=== PATIENT | male | born 1990 | race African-American/Black ===

== ENCOUNTER 2018-10-19 15:28 | Inpatient (IN) | payer MEDICAID, MEDICARE, OTHER ==
[~2018-10-19] VITALS: Ht 180.3 cm; Wt 98.0 kg
--- NOTE | 2018-10-19 15:46 | NUR ---
Note stephanie in EDM - 10/19/18 at 1737 by YANDEL PATIENT ARRIVES HERE TO FROM [facility]. [facility] WITH COMPLAINTS OF HEARING VOICES THAT WERE TELLIGN HIM TO HURT HIMSELF. HE HAS A HX SCHITZOPHRENIA, BIPOLAR, DEPRESSION. HE ARRIVES HERE FROM [place]. HE WAS IN [place] IN [place] FOR WRECKLESS DRIVING. HE IS CALM AND COOPERATIVE. IN BED, ON MONITOR.
--- NOTE | 2018-10-19 15:46 | NUR ---
PATIENT ARRIVES HERE TO ER FROM [facility]. HE WAS FOUND AT [facility] DOOR WITH COMPLAINTS OF HEARING VOICES THAT WERE TELLIGN HIM TO HURT HIMSELF. HE HAS A HX SCHITZOPHRENIA, BIPOLAR, DEPRESSION. HE ARRIVES HERE FROM [place]. HE WAS RECENTLY RELEASED FROM [place] WHERE HE WAS UNABLE TO GET HIS PSYCH MEDICATIONS SINCE HIS RELEASE FROM [place]. HE IS CALM AND COOPERATIVE. IN BED, ON MONITOR
--- NOTE | 2018-10-19 16:18 | NUR ---
brynn Le here talking to patient. offered him food, drink, blankets - he states not hungry and no requests. will monitor.
[2018-10-19] MEDS ORDERED: ZIPRASIDONE 20 MG INJ IM ONE (16:30)
[2018-10-19] MEDS ORDERED: OLANZAPINE 10 MG TABLET PO ONE (16:36)
[2018-10-19] MEDS ORDERED: OLANZAPINE 10 MG TABLET ONE ×2 (16:45→21:18)
[2018-10-19 17:17] LABS: AMPHETAMINE SCREEN, URINE Negative (Negative); BARBITURATE SCREEN, URINE Negative (Negative); BENZODIAZEPINE SCREEN, URINE Negative (Negative); CANNABINOID SCREEN, URINE Negative (Negative); COCAINE SCREEN, URINE Negative (Negative); METHADONE SCREEN, URINE Negative (Negative); OPIATE SCREEN, URINE Negative (Negative)
[2018-10-19 17:24] LABS: BASOPHILS # (AUTO) 0.02 x10^3/uL (0-0.1); BASOPHILS % (AUTO) 0 % (0-1); EOSINOPHILS # (AUTO) 0.04 x10^3/uL (0-0.4); EOSINOPHILS % (AUTO) 0 % (1-7); LYMPHOCYTES # (AUTO) 1.51 x10^3/uL (1-3.4); LYMPHOCYTES % (AUTO) 12 % (22-44); MD NO; MEAN CORPUSCULAR HEMOGLOBIN 29.1 pg (27.5-34.5); MEAN CORPUSCULAR HGB CONC 33.9 g/dL (33.2-36.2); MEAN CORPUSCULAR VOLUME 85.8 fL (81-97); MEAN PLATELET VOLUME 7.9 fL (7.4-10.4); MONOCYTES % (AUTO) 7 % (2-9); NEUTROPHILS # (AUTO) 10.23 x10^3/uL (1.8-6.8); NEUTROPHILS % (AUTO) 81 % (42-75); PLATELET COUNT 414 x10^3/uL (130-400); RED CELL DISTRIBUTION WIDTH 12.1 % (9.4-14.8)
--- NOTE | 2018-10-19 17:24 | NUR ---
items of harm removed. patient calm awaiting telepsych. patient belongings locked up in locker. sitter outside door.
[2018-10-19 17:41] LABS: ALBUMIN 4.8 g/dL (3.4-5.0); ANION GAP 11 mmol/L (5-15); CALCIUM 9.4 mg/dL (8.5-10.1); CHLORIDE 107 mmol/L (98-107); CREATININE 1.07 mg/dL (0.7-1.3)
[2018-10-19 17:43] LABS: SALICYLATE LEVEL < 1.7 mg/dL (2.8-20.0)
[2018-10-19 17:44] LABS: ACETAMINOPHEN < 2 mcg/mL (10-30)
--- NOTE | 2018-10-19 18:37 | NUR ---
tele psych now calling. patient given suicide diet tray. patient calm and in bed.
--- NOTE | 2018-10-19 19:05 | NUR ---
REPORT RECEIVED FROM EVA BATISTA. ASSUMED CARE OF PT. PT RESTING ON GURNEY. MEAL TRAY HAS BEEN PROVIDED, PT HAS NOT EATEN IT YET. TELEPSYCH COMPLETE. PT TO BE PLACED ON A HOLD. SITTER OUTSIDE DOOR MONITORING PT. ROOM REMAINS SECURE. WILL CONTINUE TO MONITOR. PT CALM AND COOPERATIVE AT THIS TIME.
--- NOTE | 2018-10-19 20:04 | NUR ---
PT SLEEPING ON GURNEY. SITTER OUTSIDE DOOR, ROOM REMAINS SECURE. WILL CONTINUE TO MONITOR.
--- NOTE | 2018-10-19 20:53 | NUR ---
PT SLEEPING ON GURNEY, AROUSES TO VERBAL STIMULI. 3 BAGS OF BELONGINGS PLACED IN LOCKER. FOOD TRAY STILL AT BEDSIDE, NOT EATEN. PT DENIES ANY NEEDS AT THIS TIME. ROOM REMAINS SECURE, SITTER AT BEDSIDE. WILL CONTINUE TO MONITOR.
[2018-10-19] MEDS ORDERED: ACETAMINOPHEN 325 MG TABLET PO PRN (21:00)
[2018-10-19] MEDS ORDERED: DOCUSATE 100 MG CAPSULE PO PRN (21:00)
[2018-10-19] MEDS ORDERED: POTASSIUM CHLORIDE 20 MEQ TAB.ER.PRT PO ONE (21:00)
[2018-10-19] MEDS ORDERED: LORazepam 1MG TABLET PO ONE (21:00)
[2018-10-19] MEDS ORDERED: LIDODERM 5% PATCH TD PRN (21:00)
[2018-10-19] MEDS ORDERED: POTASSIUM CHLORIDE 20 MEQ TAB.ER.PRT ONE (21:18)
[2018-10-19] MEDS ORDERED: LORazepam 1MG TABLET ONE (21:19)
[2018-10-19] MEDS: OLANZAPINE 10 MG TABLET PO SCH (21:24)
--- NOTE | 2018-10-19 21:24 | NUR ---
PT MEDICATED PER EMAR. 5 RIGHTS ADDRESSED.
[2018-10-19] MEDS ORDERED: PLEASE ENTER ALLERGIES MC SCH (21:30)
--- NOTE | 2018-10-19 21:45 | NUR ---
FILIPE, 2N NURSE AT BEDSIDE EVALUATING PT. REPORT PROVIDED.
--- NOTE | 2018-10-19 22:01 | NUR ---
Leo brown in [facility] - 10/19/18 at 2202 by [email or web address] Patient/Caregiver given discharge instructions and they have confirmed that they understand the instructions. Patient ambulatory with steady gait.
[2018-10-19 22:02] VITALS: BP 142/84
[2018-10-19 22:59] VITALS: BP 142/84
[2018-10-20 07:16] VITALS: BP 127/78
[2018-10-20] MEDS: OLANZAPINE 10 MG TABLET PO SCH (08:28)
[2018-10-20] MEDS ORDERED: LORazepam 1MG TABLET PO ONE (18:00)
[2018-10-20 19:29] VITALS: BP 110/70
== END 2018-10-20 21:00 | DRG 641 ==
LOC: ED 16:35 → EDIP 20:43 → 2N 21:58
PROVIDERS: ADMIT Internal Medicine; ATTEND Internal Medicine
DX: E87.6 Hypokalemia (principal); F20.0 Paranoid schizophrenia; F17.210 Nicotine dependence, cigarettes, uncomplicated; Z91.14 Patient's other noncompliance with medication regimen; Z59.0 Homelessness; Z71.6 Tobacco abuse counseling
CPT/HCPCS: 36415; 80048; 80307; 80329; 82040; 83735; 85025; G0378; G0480

== ENCOUNTER 2019-02-02 01:56 | Emergency (ER) | payer MEDICARE ==
[~2019-02-02] VITALS: Ht 182.9 cm; Wt 102.3 kg
[2019-02-02 01:57] VITALS: BP 132/86
== END 2019-02-02 03:28 | disposition home or self-care (01) ==
LOC: ED 03:26
DX: F41.9 Anxiety disorder, unspecified (principal); Z76.0 Encounter for issue of repeat prescription; Z72.9 Problem related to lifestyle, unspecified
CPT/HCPCS: 99283; Q0177